=== PATIENT | female | born 1975 ===

== ENCOUNTER 2018-12-18 09:47 | Emergency (ER) | payer OTHER ==
[2018-12-18 09:47] VITALS: BMI 31.5
[2018-12-18 09:53] VITALS: RESP 18
--- NOTE | 2018-12-18 09:55 | C.PDOC ---
Time Seen by Provider: 12/18/18 09:55 Chief Complaint (Nursing): Back Pain Past Medical History Vital Signs: Last Vital Signs Temp 98.9 F 12/18/18 09:51 Pulse 74 12/18/18 09:51 Resp 18 12/18/18 09:51 BP 124/71 12/18/18 09:51 Pulse Ox 98 12/18/18 09:51 Family History: States: Unknown Family Hx - Social History Hx Tobacco Use: No Hx Alcohol Use: No Hx Substance Use: No - Immunization History Hx Tetanus Toxoid Vaccination: No Hx Influenza Vaccination: No Hx Pneumococcal Vaccination: No ED Course And Treatment O2 Sat by Pulse Oximetry: 98 Disposition - Disposition
--- NOTE | 2018-12-18 10:44 | C.PDOC ---
History Of Present Illness 43 year old female wit no significant history presents with complaints of headache x 3 days which she rates a 9/10 and describes as "strong". She attempted Naproxen for her pain with mild relief. Her headache is worsened with sound. She also states she gets dizziness with blurry vision as she raises from a seated position. She denies any light sensitivity, chest pain, head trauma, SOB, abdominal pain, nausea, vomiting, changes in bowel habits or urinary symptoms. She points to her forehead when asked where the headache is and denies any radiation. Patient also complains of chronic back pain which is worsened with hip flexion. She denies any urinary/bowel incontinence, saddle anaesthesia, or numbness/tingling in the lower extremities. PMHx: Denies PSHx: Allergies: NKDA Socialhx: Denies tobacco, EtoH, and Illicit Drug Use FamHx: Cousin - Diabetes Meds: Denies. PMD: [facility]. 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 <Radames Macias - Last Filed: 12/18/18 13:19> <Pablo Hinson - Last Filed: 12/20/18 13:38> Time Seen by Provider: 12/18/18 09:55 Chief Complaint (Nursing): Headache Past Medical History Reviewed: Vital Signs Vital Signs: Last Vital Signs Temp 98.9 F 12/18/18 09:51 Pulse 74 12/18/18 09:51 Resp 18 12/18/18 09:51 BP 124/71 12/18/18 09:51 Pulse Ox 98 12/18/18 09:51 Family History: States: Diabetes - Social History Hx Tobacco Use: No Hx Alcohol Use: No Hx Substance Use: No - Immunization History Hx Tetanus Toxoid Vaccination: No Hx Influenza Vaccination: No Hx Pneumococcal Vaccination: No <Radames Macias - Last Filed: 12/18/18 13:19> Vital Signs: Last Vital Signs Temp 98.6 F 12/18/18 13:40 Pulse 62 12/18/18 13:40 Resp 18 12/18/18 13:40 BP 106/69 12/18/18 13:40 Pulse Ox 100 12/18/18 13:40 <Pablo Hinson - Last Filed: 12/20/18 13:38> Review Of Systems Except As Marked, All Systems Reviewed And Found Negative. (As per HPI) <ColleenRadames - Last Filed: 12/18/18 13:19> Physical Exam - Physical Exam Appears: Well, Non-toxic, No Acute Distress Skin: Normal Color, Warm, Dry Head: Atraumatic, Normacephalic, No Tenderness, No Swelling, No Abrasion, No Laceration Eye(s): bilateral: Normal Inspection, PERRL, EOMI Nose: Normal Oral Mucosa: Moist Tongue: Normal Appearing Lips: Normal Appearing Teeth: Normal Dentition Gingiva: Normal Appearing Throat: Normal, No Erythema, No Exudate Neck: Normal Cardiovascular: Rhythm Regular Respiratory: Normal Breath Sounds, No Accessory Muscle Use Gastrointestinal/Abdominal: Normal Exam, Soft, No Tenderness Back: Paraspinal Tenderness (Right/Left L4-L5), No Straight Leg Raising (Negative), Other (Pain with Hip Flexion) Extremity: Tenderness, No Pedal Edema, Calf Tenderness (Right Sided) Neurological/Psych: Oriented x3, Normal Speech <ColleenRadames - Last Filed: 12/18/18 13:19> ED Course And Treatment - Laboratory Results Result Diagrams: 12/18/18 11:22 12/18/18 11:22 O2 Sat by Pulse Oximetry: 98 - Physician Consult Information Time Consulting Physician Contacted: 13:15 Physician Contacted: Marty Hwang Outcome Of Conversation: Outpatient F/U <Radames Macias - Last Filed: 12/18/18 13:19> - Laboratory Results Result Diagrams: 12/18/18 11:22 12/18/18 11:22 Lab Results: Total Bilirubin 0.3 mg/dL (0.2-1.3) 12/18/18 11:22 AST 22 U/L (14-36) 12/18/18 11:22 ALT 13 U/L (9-52) 12/18/18 11:22 Alkaline Phosphatase 49 U/L (38-126) 12/18/18 11:22 Total Protein 7.2 g/dL (6.3-8.3) 12/18/18 11:22 Albumin 4.1 g/dL (3.5-5.0) 12/18/18 11:22 Globulin 3.0 gm/dL (2.2-3.9) 12/18/18 11:22 Albumin/Globulin Ratio 1.4 (1.0-2.1) 12/18/18 11:22 <Pablo Hinson - Last Filed: 12/20/18 13:38> Medical Decision Making Medical Decision Making: Headache/Dizziness Mgmt Head CT - Mastoiditis. Discussed findings with Dr. Hwang. CT head does not correlate with clinical findings. Will ask patient to follow up with Dr. Hwang. Orthostatic Vital Signs - NEGATIVE CBC/CMP - Anemia. Reglan 10mg ONCE Back Pain Mgmt: DC with Ibuprofen. Calf Tenderness: Mgmt: Venous US of Right Lower Extremity - Negative Preliminary Read. --Reassess. Upon Reassessment, patient states she feels better. She will be discharged with a prescription for ibuprofen. She is to follow up with the [facility] within 2-3 days. Patient should also follow with ENT and Neurology. <Radames Macias - Last Filed: 12/18/18 13:19> Disposition Counseled Patient/Family Regarding: Studies Performed, Diagnosis, Need For Followup, Rx Given - Disposition Disposition Time: :19 <Radames Macias - Last Filed: 12/18/18 13:19> <Pablo Hinson - Last Filed: 12/20/18 13:38> - Disposition Referrals: [facility] at [facility] [Outside] Marty Hwang MD [Staff Provider] - Leodan Yu MD [Staff Provider] - Disposition: HOME/ ROUTINE Condition: GOOD Prescriptions: RX: Ibuprofen [Motrin Tab] 600 mg PO Q6H PRN #21 tab PRN Reason: Pain, Moderate (4-7) Instructions: Low Back Pain (DC), Back Exercises, Headache, Adult (DC) Forms: [employer] (Ugandan) Print Language: JAPANESE - Clinical Impression Clinical Impression: Headache, Low back pain - PA / RADAR TECHNICIAN / Resident Statement MD/DO has examined the patient and agrees with the treatment plan. (43 yr old female p/w headache and chronic back pain. No vertebral tenderness on my exam or fnd. No cauda equina symptoms or signs. RENEE not worst of life, not sudden in onset, no meningeal signs. Normal neuro exam. No ear pain or TM abnl. No ear canal abnl. No mastoid tenderness. CT read of mastoiditis not clinically supported. Shared findings and clinical presenation w. Dr. Hwang (ENT): No intervention at this time. Given pain RENEE improvement PT is clear for for d/c home with return indications and followup.) <Pablo Hinson - Last Filed: 12/20/18 13:38>
[2018-12-18 11:28] LABS: BASO % 0.4 % (0.0-2.0); EOS # 0.1 K/uL (0.0-0.7); EOS % 1.6 % (0.0-4.0); HEMOGLOBIN 10.1 g/dL (11.0-16.0); LYMPH # 2.1 K/uL (1.0-4.3); LYMPH % 37.5 % (20.0-40.0); MEAN CORPUSCULAR HEMOGLOBIN 26.8 pg (27.0-31.0); MEAN CORPUSCULAR HGB CONC 32.7 g/dL (33.0-37.0); MEAN PLATELET VOLUME 8.4 fL (7.2-11.7); MONO # 0.3 K/uL (0.0-0.8); MONO % 6.3 % (0.0-10.0); NEUT % 54.2 % (50.0-75.0); RBC 3.77 Mil/uL (3.80-5.20); RED CELL DISTRIBUTION WIDTH 13.9 % (11.5-14.5); WHITE BLOOD COUNT 5.5 K/uL (4.8-10.8)
[2018-12-18 11:30] LABS: MEAN CELL VOLUME 81.7 fL (81.0-99.0)
[2018-12-18 11:41] LABS: ALB/GLOB RATIO 1.4 (1.0-2.1); ALBUMIN 4.1 g/dL (3.5-5.0); ALT/SGPT 13 U/L (9-52); AST/SGOT 22 U/L (14-36); BLOOD UREA NITROGEN 11 mg/dL (7-17); CALCIUM 8.9 mg/dl (8.6-10.4); GFR NON-AFRICAN AMERICAN > 60
--- NOTE | 2018-12-18 12:21 | CT ---
Date of service: 12/18/2018 PROCEDURE: CT HEAD WITHOUT CONTRAST. HISTORY: Headache, First Time. COMPARISON: None available. TECHNIQUE: Axial computed tomography images were obtained through the head/brain without intravenous contrast. Radiation dose: Total exam DLP = 1176.23 mGy-cm. This CT exam was performed using one or more of the following dose reduction techniques: Automated exposure control, adjustment of the mA and/or kV according to patient size, and/or use of iterative reconstruction technique. FINDINGS: HEMORRHAGE: No intracranial hemorrhage. BRAIN: No mass effect or edema. No atrophy or chronic microvascular ischemic changes.Please note that MRI with diffusion imaging is more sensitive in the detection of acute ischemic event. VENTRICLES: No hydrocephalus. CALVARIUM: Unremarkable PARANASAL SINUSES: Unremarkable as visualized. No significant inflammatory changes. MASTOID AIR CELLS: Under aeration of the bilateral mastoid air cells. Small fluid in the left mastoid air cells. Correlate clinically for mastoiditis. OTHER FINDINGS: None. IMPRESSION: No acute intracranial pathology identified. Under aeration of the bilateral mastoid air cells. Small fluid in the left mastoid air cells. Correlate clinically for mastoiditis.
[2018-12-18 13:40] VITALS: BP 106/69; PULSE 62; TEMP 98.6; O2SAT 100
--- NOTE | 2018-12-18 14:37 | VASCLAB ---
Date of service: 12/18/2018 PROCEDURE: Right Lower Extremity Venous Duplex Exam. HISTORY: Calf Tenderness/Swelling PRIORS: None. TECHNIQUE: Right common femoral, femoral, popliteal and posterior tibial, peroneal and great saphenous veins were evaluated. Flow was assessed with color Doppler, compressibility, assessment of phasic flow and augmentation response. Report prepared by RIGOBERTO Paris, RVT FINDINGS: RIGHT: 1. Common Femoral Vein: 1.1. Compressibility - Fully compressible: Thrombus - None: Flow - Phasic: Augmentation -Normal: Reflux - None. 2. Femoral Vein: 2.1. Compressibility - Fully compressible: Thrombus - None: Flow - Phasic: Augmentation -Normal: Reflux - None. 3. Popliteal Vein: 3.1. Compressibility - Fully compressible: Thrombus - None: Flow - Phasic: Augmentation -Normal: Reflux - None. 4. Posterior Tibial Vein: 4.1. Compressibility - Fully compressible: Thrombus - None: Flow - Phasic: Augmentation -Normal: Reflux - None. 5. Peroneal Vein: 5.1. Compressibility - Fully compressible: Thrombus - None: Flow - Phasic: Augmentation -Normal: Reflux - None. 6. Great Saphenous Vein: 6.1. Compressibility - Fully compressible: Thrombus -None: Flow - Phasic: Augmentation - Normal: Reflux - Yes. OTHER FINDINGS: IMPRESSION: No evidence of deep or superficial vein thrombosis of the right lower extremity with excellent venous flow. Valvular incompetence of the right greater saphenous veins. Normal venous flow noted in the left common femoral vein.
== END 2018-12-18 13:41 | disposition home or self-care (01) ==
LOC: C.ER 09:47
DX: R51 Headache (principal); M54.5 Low back pain
CPT/HCPCS: 70450; 80053; 83735; 85025; 93971; 96374; 99285; J2765

== ENCOUNTER 2019-02-06 12:32 | Emergency (ER) | payer OTHER ==
[2019-02-06 12:32] VITALS: BMI 31.5
[2019-02-06 12:46] VITALS: TEMP 99.3; O2SAT 100
--- NOTE | 2019-02-06 14:05 | C.PDOC ---
History Of Present Illness 43 y/o female presents to the ER complaining of subjective fever which has been present for the past 3 days. Patient states that she has associated chills, right ear pain, productive cough w/ yellow sputum, and generalized body aches. Patient reports that she has been taking Advil with some relief. She notes that she did not take any medications today. Denies having headache, sore throat, CP,SOB, abdominal pain, sick contacts, and recent travel. Chief Complaint (Nursing): Flu-like Symptoms History Per: Patient History/Exam Limitations: no limitations Onset/Duration Of Symptoms: Days Current Symptoms Are (Timing): Still Present Severity: Moderate Past Medical History Reviewed: Historical Data, Nursing Documentation, Vital Signs Vital Signs: Last Vital Signs Temp 99.3 F 02/06/19 12:44 Pulse 75 02/06/19 12:44 Resp 16 02/06/19 12:44 BP 115/71 02/06/19 12:44 Pulse Ox 100 02/06/19 12:44 - Medical History PMH: No Chronic Diseases Other Surgeries: Hx of surgeries Family History: States: Diabetes - Social History Hx Tobacco Use: No Hx Alcohol Use: No Hx Substance Use: No - Immunization History Hx Tetanus Toxoid Vaccination: No Hx Influenza Vaccination: No Hx Pneumococcal Vaccination: No Review Of Systems Constitutional: Positive for: Fever (subjective fever), Malaise. Negative for: Chills ENT: Positive for: Ear Pain (right ear pain) Respiratory: Positive for: Cough (productive cough), Sputum (yellow sputum) Gastrointestinal: Negative for: Vomiting, Abdominal Pain Physical Exam - Physical Exam Appears: Non-toxic, No Acute Distress Skin: Normal Color, Warm, Dry Head: Atraumatic, Normacephalic Eye(s): bilateral: Normal Inspection Ear(s): Bilateral: Normal Nose: Normal Oral Mucosa: Moist Throat: Erythema (mild erythema), No Exudate Neck: Supple Chest: Symmetrical Cardiovascular: Rhythm Regular Respiratory: Normal Breath Sounds, No Rales, No Rhonchi, No Wheezing Gastrointestinal/Abdominal: Normal Exam, Soft, No Tenderness, No Guarding, No Rebound Neurological/Psych: Oriented x3, Normal Speech ED Course And Treatment O2 Sat by Pulse Oximetry: 100 (RA) Pulse Ox Interpretation: Normal Medical Decision Making Medical Decision Making: Plan: --Flu Swab neg but clinically suspicious for flu D/W patient and will treat with Tamiflu PO patient verbalized understanding and is in agreement with plan patient is stable for discharge Disposition Counseled Patient/Family Regarding: Studies Performed, Diagnosis, Need For Followup, Rx Given - Disposition Referrals: [facility] [Outside] Disposition: HOME/ ROUTINE Disposition Time: 14:01 Condition: STABLE Additional Instructions: Continue Tamiflu twice a day Tylenol as needed for fever/pain Rest and Hydration Follow up with PMD in 1-2 days Return to ED if symptoms worsen Prescriptions: Acetaminophen [Tylenol] 325 mg PO Q6 PRN #30 capsule PRN Reason: Fever >100.4 F Oseltamivir Phosphate [Tamiflu] 75 mg PO BID #9 capsule Instructions: Flu, Adult (DC) Forms: [employer] [facility] (Panamanian) Print Language: POLISH - Clinical Impression Clinical Impression: Influenza-like illness - PA / ECOMMER[employer] MARKETING SPECIALIST / Resident Statement MD/DO has reviewed & agrees with the documentation as recorded. - Scribe Statement The provider has reviewed the documentation as recorded by the Jennifer Uriarte Provider Attestation All medical record entries made by the Quintinibe were at my direction and personally dictated by me. I have reviewed the chart and agree that the record accurately reflects my personal performance of the history, physical exam, medical decision making, and the department course for this patient. I have also personally directed, reviewed, and agree with the discharge instructions and disposition.
[2019-02-06 14:21] VITALS: BP 108/71; PULSE 68; RESP 18
== END 2019-02-06 14:21 | disposition home or self-care (01) ==
LOC: C.ER 12:32
DX: J11.1 Influenza due to unidentified influenza virus with other respiratory manifestations (principal)